=== PATIENT | female | born 1980 | race Caucasian/White ===

== ENCOUNTER 2016-07-29 11:09 | Emergency (ER) | payer MEDICAID ==
[2016-07-29 11:36] VITALS: BP 110/62; PULSE 75; RESP 18; TEMP 98; O2SAT 96
== END 2016-07-29 13:01 | disposition left against medical advice (07) ==
LOC: CED 11:09
DX: R07.0 Pain in throat (principal); Z53.9 Procedure and treatment not carried out, unspecified reason
CPT/HCPCS: 87880-PO; G0463-PO

== ENCOUNTER 2017-07-15 18:27 | Emergency (ER) | payer MEDICAID ==
[2017-07-15 18:41] VITALS: PULSE 82; RESP 16; TEMP 98.1; O2SAT 96
--- NOTE | 2017-07-15 18:56 | EDPHY ---
H & P Time Seen by Provider: 07/15/17 18:35 HPI/ROS: This patient has a sore throat for 3 and half weeks now 3/10 intensity, scratchy in nature. She presented to an urgent care 3 days ago had a negative rapid strep. However she has ongoing symptoms so she came in term urgency department tonight for further evaluation. Other than the 3/10 throat pain she has no other associated symptoms except for mild voice change described as slightly hoarse in nature. She reports partial relief from [id number] analgesics and no other exacerbating factors. She came here by private vehicle for evaluation. ROS: No fevers or chills. No fatigue. HEENT: Nasal congestion. No ear pain. Pulmonary: No cough. GI: No nausea or vomiting. Integumentary: No skin rash Musculoskeletal: No joint pain 7 point ROS is otherwise negative Past Medical/Surgical History: As per HPI. Otherwise healthy Smoking Status: Never smoked Physical Exam: Physical Exam Vital signs are normal. General: No acute distress HEENT: Nose: Clear discharge bilaterally. No sinus tenderness to percussion. Ears: External canals and tympanic membranes are clear with no erythema or abnormal findings bilaterally. Oropharynx: Minimal erythema with no exudates. No dysphonia. No drooling or stridor. Eyes: Pupils equal and react to light. Extraocular motions are intact. Neck: Supple with no meningismus. No lymphadenopathy Lungs: Clear to auscultation bilaterally with no rales, rhonchi or wheeze. No respiratory distress. Cardiac: Regular rate and rhythm with no murmur gallop or rub Skin: No rash or pallor. Neuro: Alert with no focal deficits noted. Initial differential diagnosis: Viral pharyngitis, strep pharyngitis, other bacterial pharyngitis. Constitutional: Initial Vital Signs Temperature (C) 36.7 C 07/15/17 18:34 Heart Rate 82 07/15/17 18:34 Respiratory Rate 16 07/15/17 18:34 Blood Pressure 146/99 H 07/15/17 18:34 O2 Sat (%) 96 07/15/17 18:34 O2 Delivery Mode Room Air Allergies/Adverse Reactions: No Known Allergies Allergy (Verified 07/15/17 18:34) Home Medications: Medication Instructions Recorded Miscellaneous Medical Supply [NO 1 ea MISC AD 02/07/13 HOME MEDS] MDM/Departure - MDM Diagnostics: Rapid strep is negative. I sent a general throat culture for this patient given ongoing symptoms and counseled regarding this. This patient appears clinically well without any findings that would be consistent with sepsis or other toxicity. I answered all the questions prior to discharge home. - Depart Disposition: Home, Routine, Self-Care Clinical Impression: Pharyngitis Qualifiers: Pharyngitis/tonsillitis etiology: unspecified etiology Qualified Code(s): J02.9 - Acute pharyngitis, unspecified Condition: Good Instructions: Pharyngitis (ED) Additional Instructions: Diagnosis: Pharyngitis Your rapid strep is again negative. Plan: Ibuprofen Tylenol for pain control as needed. Drink plenty fluids. Give plenty rest The general throat culture should be back in 2-3 days. You can call to check on this result he have not heard from us by that time. Return for any significant worsening despite treatment plan. Referrals: Alessandra Palmer MD [Primary Care Provider] - As per Instructions
[2017-07-15 19:17] VITALS: BP 140/98
== END 2017-07-15 19:14 | disposition home or self-care (01) ==
LOC: CED 18:27
DX: J02.9 Acute pharyngitis, unspecified (principal)
CPT/HCPCS: 87880-PO